=== PATIENT | female | born 1965 | race Caucasian/White ===

== ENCOUNTER 2017-02-12 11:54 | Emergency (ER) | payer BC ==
--- NOTE | 2017-02-12 12:51 | RAD ---
HISTORY: Left fourth and fifth MCP pain, trauma COMPARISONS: September 24, 2006 VIEWS: 4, Frontal, lateral, and oblique views of the left hand FINDINGS: BONE DENSITY: Normal. BONES: There is no displaced fracture. JOINTS: There is no arthropathy. ALIGNMENT: There is no dislocation. SOFT TISSUES: Unremarkable. OTHER FINDINGS: None. IMPRESSION: NO ACUTE OSSEOUS INJURY. IF SYMPTOMS PERSIST, RECOMMEND REPEAT IMAGING.
[2017-02-12 14:12] VITALS: BP 108/65
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
== END 2017-02-12 14:11 | disposition home or self-care (01) ==
LOC: ED 11:54
DX: M77.12 Lateral epicondylitis, left elbow (principal)
CPT/HCPCS: 99281